=== PATIENT | female | born 1970 | race Native Hawaiian/Other Pacific Islander ===

== ENCOUNTER 2018-03-14 08:58 | Emergency (ER) | payer SELFPAY ==
[2018-03-14 09:10] VITALS: BP 131/89; PULSE 82; RESP 16; TEMP 98.1; O2SAT 100
[2018-03-14] MEDS ORDERED: Amoxicillin-Clav 875-125 mg Tab PO STA (09:37)
--- NOTE | 2018-03-14 09:41 | C.PDOC ---
History Of Present Illness 47 year old female presents to the ED for evaluation of pain and swelling to the right lower neck for 1 week. Patient reports she does not currently having a PMD, which prompted ED visit. Denies fever, cough, ear pain, rash, chest pain, shortness of breath, and any other associated symptoms. Time Seen by Provider: 03/14/18 09:08 Chief Complaint (Nursing): Abnormal Skin Integrity History Per: Patient History/Exam Limitations: no limitations Onset/Duration Of Symptoms: Days Current Symptoms Are (Timing): Still Present Past Medical History Reviewed: Historical Data, Nursing Documentation, Vital Signs Vital Signs: Last Vital Signs Temp 98.1 F 03/14/18 09:03 Pulse 82 03/14/18 09:03 Resp 16 03/14/18 09:03 BP 131/89 03/14/18 09:03 Pulse Ox 100 03/14/18 09:03 - Medical History PMH: HTN Family History: States: Unknown Family Hx - Social History Hx Alcohol Use: Yes Hx Substance Use: No - Immunization History Hx Tetanus Toxoid Vaccination: No Hx Influenza Vaccination: No Hx Pneumococcal Vaccination: No Review Of Systems Constitutional: Negative for: Fever ENT: Negative for: Ear Pain Cardiovascular: Negative for: Chest Pain Respiratory: Negative for: Cough, Shortness of Breath Musculoskeletal: Positive for: Neck Pain (and swelling to the right lower neck. ) Skin: Negative for: Rash Physical Exam - Physical Exam Appears: Non-toxic, Other (mild discomfort.) Skin: Normal Color, Warm, Dry, No Other (no erythema above the right clavicle. ) Head: Atraumatic, Normacephalic Eye(s): bilateral: Normal Inspection Ear(s): Bilateral: Normal Throat: Normal, No Erythema, No Exudate Neck: Normal ROM, Supple, No Other (no thyromegaly.) Lymphatic: Other (above right clavicle: swelling and tenderness to palpation of lymph. (-) no other lymphadenopathy.) Chest: Symmetrical, No Deformity Cardiovascular: Rhythm Regular, No Murmur Respiratory: Normal Breath Sounds, No Rales, No Rhonchi, No Wheezing Neurological/Psych: Oriented x3, Normal Speech ED Course And Treatment O2 Sat by Pulse Oximetry: 100 (RA) Pulse Ox Interpretation: Normal Medical Decision Making Medical Decision Making: Plan: -Augmentin -Motrin Progress/Update: Patient stable for discharge home. Prescribed Augmentin and Motrin. Patient advised to take prescribed medications to completion and isit PMD for possible lymph biopsy. Disposition Counseled Patient/Family Regarding: Diagnosis, Need For Followup (+9), Rx Given - Disposition Referrals: [facility] [Outside] Disposition: HOME/ ROUTINE Disposition Time: 09:45 Condition: STABLE Additional Instructions: FOLLOW UP IN THE MEDICAL CLINIC WITHIN 1 WEEK MAKE SURE IF SYMPTOMS DO NOT RESOLVE YOU HAVE LYMPH NODE EVALUATED/BIOPSIED RETURN TO ER IF SYMPTOMS WORSEN Prescriptions: Amoxicillin/Clavulanate [Augmentin 875 MG-125 MG] 1 tab PO BID #14 tab Ibuprofen [Motrin Tab] 600 mg PO Q6 PRN #30 tab PRN Reason: fever/pain Forms: [facility] (Danish), General Discharge Instructions Print Language: FAROESE - Clinical Impression Clinical Impression: Lymphadenitis - Scribe Statement The provider has reviewed the documentation as recorded by the Scribe (Felecia Beebe) Provider Attestation: All medical record entries made by the Scribe were at my direction and personally dictated by me. I have reviewed the chart and agree that the record accurately reflects my personal performance of the history, physical exam, medical decision making, and the department course for this patient. I have also personally directed, reviewed, and agree with the discharge instructions and disposition.
[2018-03-14] MEDS ORDERED: Amoxicillin-Clav 875-125 mg Tab PO ONE (09:47)
== END 2018-03-14 09:58 | disposition home or self-care (01) ==
LOC: C.ER 08:58
DX: I88.9 Nonspecific lymphadenitis, unspecified (principal)

== ENCOUNTER → 2018-04-06 | Day surgery (SDC) | payer OTHER ==
[2018-04-05 08:42] VITALS: BMI 30.7
--- NOTE | 2018-04-06 12:27 | PCM.SURG1 ---
Surgeon's Initial Post Op Note - Surgeon's Notes Surgeon: Obey Can MD Notching Press Operator: NONE Type of Anesthesia: Local Pre-Operative Diagnosis: Right neck abscess Operative Findings: US of right neck mass showed significant inflammatory changes within the soft tissue. No definable mass seen. Post-Operative Diagnosis: Right neck abscess Operation Performed: US guided aspiration/biopsy. 20 cc of purelent fluid removed. Specimen/Specimens Removed: 20 cc Estimated Blood Loss: EBL {In ML}: 0 Blood Products Given: N/A Drains Used: No Drains Post-Op Condition: Good Date of Surgery/Procedure: 04/06/18 Time of Surgery/Procedure: 12:25
--- NOTE | 2018-04-06 12:28 | CP.SDSHP ---
Same Day Surgery H & P - History Proposed Procedure: Right neck mass biopsy Pre-Op Diagnosis: Right neck mass - Allergies Allergies: Allergies No Known Allergies Allergy (Verified 03/14/18 09:05) - Impression Impression: Pt with right supraclavicular mass with ultrasound appearance of soft tissue infection. No definable mass seen. Plan biopsy and aspiration. - Date & Time Date: 04/06/18 Time: 12:20 Short Stay Discharge - Short Stay Discharge Admitting Diagnosis/Reason for Visit: LOCALIZED SWELLING, MASS AND LUMP, TRUNK Disposition: HOME/ ROUTINE
--- NOTE | 2018-04-08 10:50 | US ---
PROCEDURE: Date of procedure: 04/06/2018 Procedure: Ultrasound-guided aspiration of supraclavicular abscess. Ultrasound guidance for biopsy, [id number] Medications: 4cc 1% Lidocaine HISTORY: Right supraclavicular mass TECHNIQUE: Following informed consent and procedure time-out, limited ultrasound patient's right neck showed a complex collection with significant inflammation of the soft tissue consistent with an abscess. The patient's neck was prepped and draped in the usual sterile fashion. The skin was anesthetized with 1 percent lidocaine. Ultrasound-guided fine needle aspiration was then performed using a 25 gauge needle. This was followed with aspiration of 20 cubic centimeters of purulent fluid. Fluid specimen was sent for culture. A post biopsy ultrasound showed no hematoma IMPRESSION: Ultrasound-guided aspiration of right supraclavicular abscess. 20 cubic centimeters of purulent drainage was removed sent for culture.
== END | disposition home or self-care (01) ==
LOC: C.SPRAD 10:58
PROVIDERS: ATTEND Radiology Vascular & Interventional Radiology
DX: R22.2 Localized swelling, mass and lump, trunk (principal); L02.11 Cutaneous abscess of neck

== ENCOUNTER 2018-05-03 12:46 | Outpatient (CLI) | payer OTHER | END 2018-05-03 12:47 | disposition home or self-care (01) | LOC: C.CTH 12:47 | DX: L02.91 Cutaneous abscess, unspecified (principal) ==

== ENCOUNTER → 2018-08-02 | Outpatient (CLI) | payer OTHER | LOC: C.CTH 13:57 | DX: L02.91 Cutaneous abscess, unspecified (principal) ==